=== PATIENT | female | born 1995 | race Two or more races ===

== ENCOUNTER → 2019-04-16 | Outpatient (REF) | payer OTHER, MEDICAID ==
[2019-04-16 21:44] LABS: HEMOGLOBIN A1c 5.4 %
== END ==
LOC: EDSEX → M LAB REF 19:05 → EDSEX 19:05
PROVIDERS: ATTEND Nurse Practitioner Adult Health
DX: R73.03 Prediabetes (principal); Z79.890 Hormone replacement therapy

== ENCOUNTER → 2019-04-21 | Outpatient (REF) | payer OTHER, MEDICAID | LOC: EDSEX → M LAB REF 08:26 | PROVIDERS: ATTEND Physician Assistant | DX: J02.9 Acute pharyngitis, unspecified (principal) ==

== ENCOUNTER → 2019-05-30 | Outpatient (REF) | payer OTHER, MEDICAID | LOC: M LAB REF 16:31 → EDSEX 16:31 | PROVIDERS: ATTEND Physician Assistant | DX: R30.0 Dysuria (principal) ==

== ENCOUNTER → 2019-08-06 | Outpatient (REF) | payer OTHER, MEDICAID ==
[2019-08-06 18:18] LABS: BASO % 0.3 % (0.0-1.0); EOS # 0.2 10^3/uL (0.0-0.5); EOS % 1.7 % (0.0-3.0); HEMATOCRIT 49.5 % (42.0-52.0); HEMOGLOBIN 16.3 g/dl (13.5-17.5); LYMPH # 2.8 10^3/uL (1.5-5.0); LYMPH % 30.6 % (24.0-44.0); MEAN CORPUSCULAR HEMOGLOBIN 29.2 pg (27.0-33.0); MEAN CORPUSCULAR HGB CONC 32.9 g/dl (32.0-36.5); MEAN CORPUSCULAR VOLUME 88.7 fl (80.0-96.0); MONO # 0.7 10^3/uL (0.0-0.8); MONO % 7.5 % (0.0-5.0); NEUTROPHILS # 5.4 10^3/uL (1.5-8.5); NEUTROPHILS % 59.7 % (36.0-66.0); PLATELET COUNT, AUTOMATED 291 10^3/uL (150-450); RED BLOOD COUNT 5.58 10^6/uL (4.30-6.10)
[2019-08-06 18:19] LABS: ALBUMIN 3.8 GM/DL (3.2-5.2); ALT/SGPT 19 U/L (12-78); BILIRUBIN,TOTAL 0.4 MG/DL (0.2-1.0); BLOOD UREA NITROGEN 16 MG/DL (7-18); CALCIUM LEVEL 9.3 MG/DL (8.5-10.1); CARBON DIOXIDE LEVEL 27 MEQ/L (21-32); CHLORIDE LEVEL 104 MEQ/L (98-107); CHOLESTEROL LEVEL 164 MG/DL (<200); CHOLESTEROL RISK RATIO 4.685 (<5); CREATININE FOR GFR 0.87 MG/DL (0.70-1.30); GLOMERULAR FILTRATION RATE > 60.0 (>60); GLUCOSE, FASTING 89 MG/DL (70-100); HDL CHOLESTEROL 35 MG/DL (>40); LDL CHOLESTEROL 98 MG/DL (<100); NON-HDL-C 129 MG/DL; POTASSIUM SERUM 4.3 MEQ/L (3.5-5.1); SODIUM LEVEL 139 MEQ/L (136-145); TOTAL PROTEIN 7.8 GM/DL (6.4-8.2); TRIGLYCERIDES LEVEL 156 MG/DL (<150)
[2019-08-06 18:27] LABS: TESTOSTERONE 728 NG/DL (241-827)
[2019-08-06 18:36] LABS: HEMOGLOBIN A1c 5.4 %
== END ==
LOC: M LAB REF 17:07
PROVIDERS: ATTEND Nurse Practitioner Adult Health
DX: Z79.890 Hormone replacement therapy (principal)

== ENCOUNTER → 2019-10-20 | Outpatient (REF) | payer OTHER ==
[2019-10-20 17:57] LABS: APPEARANCE, URINE HAZY (CLEAR); BACTERIA, URINE AUTO 1+ (NEGATIVE); BILIRUBIN, URINE AUTO NEGATIVE (NEGATIVE); BLOOD, URINE BLOOD 2+ (NEGATIVE); COLOR, URINE YELLOW (YELLOW); GLUCOSE, URINE (UA) AUTO NEGATIVE (NEGATIVE); KETONE, URINE AUTO TRACE mg/dL (NEGATIVE); LEUKOCYTE ESTERASE, URINE AUTO 1+ (NEGATIVE); MUCUS, URINE SMALL (NEGATIVE); NITRITE, URINE AUTO NEGATIVE (NEGATIVE); PROTEIN, URINE AUTO 1+ mg/dL (NEGATIVE); RBC, URINE AUTO 17 /HPF (0-3); SPECIFIC GRAVITY URINE AUTO 1.034 (1.002-1.035); SQUAMOUS EPITHELIAL CELL UR AU 0 /HPF (0-6); WBC, URINE AUTO 7 /HPF (0-3)
== END ==
LOC: M LAB REF 17:07
PROVIDERS: ATTEND Physician Assistant Medical
DX: R30.0 Dysuria (principal)

== ENCOUNTER → 2019-11-29 | Outpatient (REF) | payer OTHER, MEDICAID ==
[2019-11-29 19:24] LABS: BASO % 0.3 % (0.0-1.0); EOS # 0.1 10^3/uL (0.0-0.5); EOS % 1.9 % (0.0-3.0); HEMATOCRIT 49.5 % (42.0-52.0); HEMOGLOBIN 16.4 g/dl (13.5-17.5); LYMPH # 2.6 10^3/uL (1.5-5.0); LYMPH % 37.2 % (24.0-44.0); MEAN CORPUSCULAR HEMOGLOBIN 29.7 pg (27.0-33.0); MEAN CORPUSCULAR HGB CONC 33.1 g/dl (32.0-36.5); MEAN CORPUSCULAR VOLUME 89.5 fl (80.0-96.0); MONO # 0.6 10^3/uL (0.0-0.8); NEUTROPHILS # 3.6 10^3/uL (1.5-8.5); NEUTROPHILS % 52.3 % (36.0-66.0); PLATELET COUNT, AUTOMATED 281 10^3/uL (150-450); RED BLOOD COUNT 5.53 10^6/uL (4.30-6.10); WHITE BLOOD COUNT 6.9 10^3/uL (4.0-10.0)
[2019-11-29 19:32] LABS: ALBUMIN 3.9 GM/DL (3.2-5.2); ALT/SGPT 29 U/L (12-78); BILIRUBIN,TOTAL 0.4 MG/DL (0.2-1.0); BLOOD UREA NITROGEN 15 MG/DL (7-18); CALCIUM LEVEL 9.2 MG/DL (8.5-10.1); CARBON DIOXIDE LEVEL 26 MEQ/L (21-32); CHLORIDE LEVEL 105 MEQ/L (98-107); CHOLESTEROL LEVEL 178 MG/DL (<200); CHOLESTEROL RISK RATIO 4.684 (<5); CREATININE FOR GFR 0.98 MG/DL (0.70-1.30); GLOMERULAR FILTRATION RATE > 60.0 (>60); GLUCOSE, FASTING 94 MG/DL (70-100); HDL CHOLESTEROL 38 MG/DL (>40); LDL CHOLESTEROL 109 MG/DL (<100); NON-HDL-C 140 MG/DL; POTASSIUM SERUM 4.4 MEQ/L (3.5-5.1); SODIUM LEVEL 137 MEQ/L (136-145); TOTAL PROTEIN 7.8 GM/DL (6.4-8.2); TRIGLYCERIDES LEVEL 157 MG/DL (<150)
[2019-11-29 19:39] LABS: ESTRADIOL 40.8 PG/ML (<39.8); TESTOSTERONE 733 NG/DL (241-827)
[2019-11-29 19:40] LABS: HEMOGLOBIN A1c 5.9 %
== END ==
LOC: M LAB REF 17:24
PROVIDERS: ATTEND Nurse Practitioner Adult Health
DX: Z79.890 Hormone replacement therapy (principal)

== ENCOUNTER → 2020-01-30 | Outpatient (REF) | payer OTHER, MEDICAID | LOC: M LAB REF 17:44 | PROVIDERS: ATTEND Physician Assistant | DX: N39.0 Urinary tract infection, site not specified (principal) ==

== ENCOUNTER → 2020-03-23 | Outpatient (REF) | payer OTHER, MEDICAID ==
[2020-03-23 18:19] LABS: APPEARANCE, URINE CLEAR (CLEAR); BACTERIA, URINE AUTO NEGATIVE (NEGATIVE); BILIRUBIN, URINE AUTO NEGATIVE (NEGATIVE); BLOOD, URINE BLOOD 1+ (NEGATIVE); COLOR, URINE YELLOW (YELLOW); GLUCOSE, URINE (UA) AUTO NEGATIVE (NEGATIVE); KETONE, URINE AUTO NEGATIVE (NEGATIVE); LEUKOCYTE ESTERASE, URINE AUTO 2+ (NEGATIVE); MUCUS, URINE SMALL (NEGATIVE); NITRITE, URINE AUTO NEGATIVE (NEGATIVE); PROTEIN, URINE AUTO NEGATIVE (NEGATIVE); RBC, URINE AUTO 2 /HPF (0-3); SPECIFIC GRAVITY URINE AUTO 1.015 (1.002-1.035); SQUAMOUS EPITHELIAL CELL UR AU 0 /HPF (0-6); UROBILINOGEN, URINE AUTO 0.2 mg/dL (0.0-2.0); WBC, URINE AUTO 7 /HPF (0-3)
== END ==
LOC: EDSEX → M LAB REF 10:58
PROVIDERS: ATTEND Physician Assistant Medical
DX: N39.0 Urinary tract infection, site not specified (principal)

== ENCOUNTER → 2020-04-07 | Outpatient (REF) | payer OTHER ==
[2020-04-07 21:53] LABS: APPEARANCE, URINE CLEAR (CLEAR); BACTERIA, URINE AUTO NEGATIVE (NEGATIVE); BILIRUBIN, URINE AUTO NEGATIVE (NEGATIVE); BLOOD, URINE BLOOD 1+ (NEGATIVE); COLOR, URINE STRAW (YELLOW); GLUCOSE, URINE (UA) AUTO NEGATIVE (NEGATIVE); KETONE, URINE AUTO NEGATIVE (NEGATIVE); LEUKOCYTE ESTERASE, URINE AUTO 1+ (NEGATIVE); NITRITE, URINE AUTO NEGATIVE (NEGATIVE); PROTEIN, URINE AUTO NEGATIVE (NEGATIVE); RBC, URINE AUTO 2 /HPF (0-3); SPECIFIC GRAVITY URINE AUTO 1.008 (1.002-1.035); SQUAMOUS EPITHELIAL CELL UR AU 0 /HPF (0-6); UROBILINOGEN, URINE AUTO 0.2 mg/dL (0.0-2.0); WBC, URINE AUTO 6 /HPF (0-3)
== END ==
LOC: EDSEX → M LAB REF 21:22
PROVIDERS: ATTEND Physician Assistant Medical
DX: N39.0 Urinary tract infection, site not specified (principal)

== ENCOUNTER → 2020-04-21 | Outpatient (CLI) | payer OTHER ==
--- NOTE | 2020-05-01 10:25 | REP ---
PELVIC ULTRASOUND: TECHNIQUE: Transabdominal pelvic ultrasound with color Doppler evaluation. FINDINGS: Bladder is normal and measures 8.9 x 7.1 x 6.3 cm. Anteverted uterus measures 5.9 x 2.6 x 4.2 cm. Endometrial complex measures 6 mm thickness. No discrete uterine or endometrial abnormality identified. Bilateral ovaries area relatively normal in appearance and vascularity without torsion. Right ovary measures 2.8 x 2.0 x 1.9 cm (RI 0.71). Left ovary measures 2.8 x 2.2 x 2.4 cm (RI 0.48) and includes a 1.4 x 1.1 x 1.2 cm presumed physiologic cyst. No pelvic fluid or adnexal mass lesion. IMPRESSION: Normal pelvic ultrasound. MTDD
== END ==
LOC: M RAD 12:51 → EDSEX 13:30
PROVIDERS: ATTEND Nurse Practitioner Adult Health
DX: R10.2 Pelvic and perineal pain (principal)

== ENCOUNTER → 2020-05-27 | Outpatient (REF) | payer OTHER ==
[2020-05-27 19:38] LABS: BASO % 0.3 % (0.0-1.0); EOS # 0.1 10^3/uL (0.0-0.5); EOS % 1.8 % (0.0-3.0); HEMATOCRIT 48.6 % (42.0-52.0); HEMOGLOBIN 15.8 g/dl (13.5-17.5); LYMPH # 3.1 10^3/uL (1.5-5.0); LYMPH % 38.5 % (24.0-44.0); MEAN CORPUSCULAR HEMOGLOBIN 29.3 pg (27.0-33.0); MEAN CORPUSCULAR HGB CONC 32.5 g/dl (32.0-36.5); MEAN CORPUSCULAR VOLUME 90.2 fl (80.0-96.0); MONO # 0.8 10^3/uL (0.0-0.8); MONO % 9.6 % (0.0-5.0); NEUTROPHILS % 49.4 % (36.0-66.0); PLATELET COUNT, AUTOMATED 298 10^3/uL (150-450); RED BLOOD COUNT 5.39 10^6/uL (4.30-6.10)
[2020-05-27 19:51] LABS: ALBUMIN 4.1 GM/DL (3.2-5.2); ALT/SGPT 25 U/L (12-78); BILIRUBIN,TOTAL 0.4 MG/DL (0.2-1.0); BLOOD UREA NITROGEN 16 MG/DL (7-18); CALCIUM LEVEL 9.1 MG/DL (8.5-10.1); CARBON DIOXIDE LEVEL 28 MEQ/L (21-32); CHLORIDE LEVEL 102 MEQ/L (98-107); CHOLESTEROL LEVEL 173 MG/DL (<200); CREATININE FOR GFR 0.96 MG/DL (0.70-1.30); GLOMERULAR FILTRATION RATE > 60.0 (>60); GLUCOSE, FASTING 65 MG/DL (70-100); HDL CHOLESTEROL 31 MG/DL (>40); LDL CHOLESTEROL 93 MG/DL (<100); NON-HDL-C 142 MG/DL; POTASSIUM SERUM 4.3 MEQ/L (3.5-5.1); SODIUM LEVEL 136 MEQ/L (136-145); TOTAL PROTEIN 7.6 GM/DL (6.4-8.2); TRIGLYCERIDES LEVEL 245 MG/DL (<150)
[2020-05-27 19:52] LABS: HEMOGLOBIN A1c 5.3 %
[2020-05-27 19:59] LABS: ESTRADIOL 58.6 PG/ML (<39.8)
[2020-05-29 11:10] LABS: TESTOSTERONE FREE (DIRECT) 27.7 pg/mL (9.3-26.5)
== END ==
LOC: M LAB REF 17:35
PROVIDERS: ATTEND Nurse Practitioner Adult Health
DX: Z79.890 Hormone replacement therapy (principal)

== ENCOUNTER → 2020-05-30 | Outpatient (REF) | payer OTHER ==
[2020-05-30 19:05] LABS: APPEARANCE, URINE CLEAR (CLEAR); BACTERIA, URINE AUTO NEGATIVE (NEGATIVE); BILIRUBIN, URINE AUTO NEGATIVE (NEGATIVE); BLOOD, URINE BLOOD 1+ (NEGATIVE); COLOR, URINE YELLOW (YELLOW); GLUCOSE, URINE (UA) AUTO NEGATIVE (NEGATIVE); KETONE, URINE AUTO NEGATIVE (NEGATIVE); LEUKOCYTE ESTERASE, URINE AUTO NEGATIVE (NEGATIVE); MUCUS, URINE SMALL (NEGATIVE); NITRITE, URINE AUTO NEGATIVE (NEGATIVE); PROTEIN, URINE AUTO NEGATIVE (NEGATIVE); RBC, URINE AUTO 12 /HPF (0-3); SQUAMOUS EPITHELIAL CELL UR AU 0 /HPF (0-6); UROBILINOGEN, URINE AUTO 0.2 mg/dL (0.0-2.0); WBC, URINE AUTO 1 /HPF (0-3)
== END ==
LOC: M LAB REF 18:45
PROVIDERS: ATTEND Physician Assistant Medical
DX: N39.0 Urinary tract infection, site not specified (principal)

== ENCOUNTER → 2020-08-19 | Outpatient (REF) | payer OTHER ==
[~2020-08-19] MED LIST: AMIT10TA PO; REGL5TAB2 PO
[2020-08-21 12:10] LABS: TESTOSTERONE FREE (DIRECT) 21.4 pg/mL (9.3-26.5)
== END ==
LOC: M LAB REF 11:43
PROVIDERS: ATTEND Nurse Practitioner Adult Health
DX: Z79.890 Hormone replacement therapy (principal)

== ENCOUNTER 2020-08-24 14:37 | Emergency (ER) | payer OTHER ==
[~2020-08-24] VITALS: Ht 167.6 cm; Wt 106.5 kg
[2020-08-24] MEDS ORDERED: KETOROLAC 30 MG/ML 1ML VIAL IV ONE (15:45)
[2020-08-24] MEDS ORDERED: METOCLOPRAMIDE INJ 10MG/2ML VIAL (J2765 PER 1) IV ONE (15:45)
[2020-08-24] MEDS ORDERED: ACETAMINOPHEN 500 MG TAB PO ONE (15:45)
--- NOTE | 2020-08-24 16:05 | REP ---
INDICATION: headahce x 1.5 mo. COMPARISON: None. TECHNIQUE: Helical scanning is acquired. 5 mm axial images were reformatted. Coronal MPR images were generated. FINDINGS: Bone window settings demonstrate an intact bony calvarium. There is no evidence of skull fracture or incidental bony calvarial lesion. The visualized paranasal sinuses appear clear. No intraorbital abnormality is seen. On soft tissue window setting images; the lateral, third, and fourth ventricles are normal in size and position. There is a persistent cavum septum lucent M which is normal variant. Escobedo-white differentiation pattern is normal above and below the tentorium. There are is no evidence of intracranial hemorrhage. No mass, edema, infarction, or midline shift is seen. No extra-axial fluid collection is appreciated. IMPRESSION: Negative noncontrast head CT. <Electronically signed by Michael Tovar > 08/24/20 [id number]
[2020-08-24] MEDS ORDERED: AMIT10TA PO (17:34)
[2020-08-24] MEDS ORDERED: REGL5TAB2 PO (17:35)
[2020-08-24 17:49] VITALS: BP 137/69
== END 2020-08-24 17:51 | disposition home or self-care (01) ==
LOC: M ED 14:37
DX: R51.9 Headache, unspecified (principal); Z79.899 Other long term (current) drug therapy; F12.20 Cannabis dependence, uncomplicated
CPT/HCPCS: 70450; 96374; 96375; 99283; J1885; J2765

== ENCOUNTER 2020-11-14 13:39 | Emergency (ER) | payer OTHER ==
[~2020-11-14] VITALS: Ht 170.2 cm; Wt 100.5 kg
[~2020-11-14 13:39] MED LIST changes: -AMIT10TA PO; +AMIT10TA7 PO
[2020-11-14] MEDS ORDERED: TEST50GE2 (13:46)
[2020-11-14] MEDS ORDERED: FAMO1TAB11 (13:46)
[2020-11-14] MEDS ORDERED: BUSP15TA47 PO (13:46)
--- NOTE | 2020-11-14 15:13 | REP ---
INDICATION: swelling/hormone use. COMPARISON: None. TECHNIQUE: Bilateral upper extremity duplex venous sonography. FINDINGS: The internal jugular, axillary, brachial, basilic, and cephalic veins are anechoic and compressible in the left and right upper extremity. Color flow imaging is homogeneous. Spectral Doppler interrogation is unremarkable. There is no evidence of left or right upper extremity venous thrombosis. IMPRESSION: Negative bilateral upper extremity duplex venous ultrasound. No evidence of venous thrombosis. <Electronically signed by Michael Tovar > 11/14/20 [id number]
[2020-11-14 16:09] LABS: BASO % 0.3 % (0.0-1.0); EOS # 0.1 10^3/uL (0.0-0.5); EOS % 1.9 % (0.0-3.0); HEMATOCRIT 49.5 % (42.0-52.0); HEMOGLOBIN 16.5 g/dl (13.5-17.5); LYMPH # 2.3 10^3/uL (1.5-5.0); LYMPH % 33.2 % (24.0-44.0); MEAN CORPUSCULAR HEMOGLOBIN 30.1 pg (27.0-33.0); MEAN CORPUSCULAR HGB CONC 33.3 g/dl (32.0-36.5); MEAN CORPUSCULAR VOLUME 90.3 fl (80.0-96.0); MONO # 0.6 10^3/uL (0.0-0.8); MONO % 8.3 % (2.0-8.0); NEUTROPHILS # 3.9 10^3/uL (1.5-8.5); NEUTROPHILS % 56.2 % (36.0-66.0); PLATELET COUNT, AUTOMATED 250 10^3/uL (150-450); RED BLOOD COUNT 5.48 10^6/uL (4.30-6.10); WHITE BLOOD COUNT 6.9 10^3/uL (4.0-10.0)
[2020-11-14 16:22] LABS: INR 0.97; PROTHROMBIN TIME 13.1 SECONDS (12.5-14.3)
[2020-11-14 16:23] LABS: PARTIAL THROMBOPLASTIN TIME 33.1 SECONDS (24.2-38.5)
[2020-11-14] MEDS ORDERED: IBUP-1114 PO (16:32)
[2020-11-14 16:48] VITALS: BP 135/77
== END 2020-11-14 17:01 | disposition home or self-care (01) ==
LOC: M ED 13:39
DX: S40.021A Contusion of right upper arm, initial encounter (principal); S40.022A Contusion of left upper arm, initial encounter; X58.XXXA Exposure to other specified factors, initial encounter; Y92.89 Other specified places as the place of occurrence of the external cause; Z79.899 Other long term (current) drug therapy; F15.20 Other stimulant dependence, uncomplicated

== ENCOUNTER → 2021-03-06 | Outpatient (CLI) | payer OTHER ==
[~2021-03-06] MED LIST changes: +BUSP15TA47 PO; +FAMO1TAB11; +FAMO20TA PO; +IBUP-1114 PO; +TEST50GE2; +TEST5GEL PO
== END ==
LOC: M LABSMTC 09:56
PROVIDERS: ATTEND Anesthesiology
DX: Z01.818 Encounter for other preprocedural examination (principal)

== ENCOUNTER 2021-03-11 09:30 | Observation (INO) | payer OTHER ==
[~2021-03-11] VITALS: Ht 170.2 cm; Wt 102.1 kg
[~2021-03-11 09:30] MED LIST changes: +HEPARIN SOD (PORCINE) 5000UNITS/ML 1ML VIAL/SYRINGE SQ ONE; +LIDOCAINE 2% 100MG/5ML SDV (FOR ANES.) As Ordered ONE; +LR 1,000 ML IV ONE; +MIDAZOLAM INJ 2MG/2ML VIAL (J2250 PER 1MG) As Ordered ONE; +ONDANSETRON 4MG/2ML VIAL As Ordered ONE; +ROCURONIUM BROMIDE 50 MG/5 ML VIAL As Ordered ONE; +ceFAZolin SOD 1 GM in D5W MINI-BAG PLUS 50 ML IV ONE; +dexameTHASONE 4 MG/ML 1ML VIAL (J1100 PER 1MG) As Ordered ONE; +fentaNYL 250 MCG/5 ML INJECTION (J3010) As Ordered ONE; +propofoL 200 MG/20 ML VIAL As Ordered ONE
[2021-03-11] MEDS ORDERED: GENTAMICIN SULF 80MG/2ML VIAL As Ordered ONE (11:20)
[2021-03-11] MEDS ORDERED: EPINEPHrine INJ 1 MG/ML 1ML AMP As Ordered ONE (11:21)
[2021-03-11] MEDS ORDERED: LIDOCAINE 1% MDV 20ML VIAL As Ordered ONE (11:21)
[2021-03-11] MEDS ORDERED: LACRILUBE (AKWA TEARS) OPHTH OINT 3.5 GM As Ordered ONE (11:53)
[2021-03-11] MEDS ORDERED: ROCURONIUM BROMIDE 50 MG/5 ML VIAL As Ordered ONE ×2 (12:31→13:50)
[2021-03-11] MEDS ORDERED: ACETAMINOPHEN 1000MG 100ML IV BTL (OFIRMEV) (J0131 PER 10MG) As Ordered ONE (12:32)
[2021-03-11] MEDS ORDERED: SUGAMMADEX SODIUM 500 MG/5 ML VIAL (BRIDION) As Ordered ONE (12:32)
[2021-03-11] MEDS ORDERED: HYDROmorphone HCL 2 MG/ML 1ML VIAL (J1170) As Ordered ONE (12:36)
[2021-03-11] MEDS ORDERED: PHENYLephrine 500MCG 5ML (100MCG/ML) SYRINGE As Ordered ONE (12:53)
[2021-03-11] MEDS: BUPIVACAINE LIPOSOME/PF 1.3% 20ML VIAL (13.3MG/ML)(EXPAREL)(C9290 PER1MG) As Ordered ONE ×2 (13:33→14:54)
[2021-03-11] MEDS ORDERED: ESMOLOL INJ 100MG/10ML VIAL As Ordered ONE (15:45)
--- NOTE | 2021-03-11 16:04 | ROOPDOC ---
[facility] Report Of Operation Report of Operation DATE OF PROCEDURE: 03/11/21 PREOPERATIVE DIAGNOSIS: Gender dysphoria, bilateral breast hypertrophy POSTOPERATIVE DIAGNOSIS: same PROCEDURE: Chest masculinization procedure with subcutaneous mastectomies, contouring liposuction and free nipples graft. SURGEON: Dr Corral [employer] DIRECTOR: none ANESTHESIA: general ESTIMATED BLOOD LOSS: 100 cc FINDINGS: female chest distribution SPECIMENS: Right breast 1236 gm, Left breast 1229 gm COMPLICATIONS: none REPLACED: none DRAINS: 10 mm JOEY x 2 POSTOPERATIVE CONDITION: stable DESCRIPTION OF PROCEDURE: DESCRIPTION OF PROCEDURE: This is a 25-year-old transgender male who would like to have chest masculinization procedure. Patient fits the criteria for the procedure. He has stopped testosterone 3 weeks ago. Risks, benefits, and alternatives were discussed with the patient in detail, and he is ready to proceed. The day of surgery, he was marked in the upright position and informed consent w as obtained. He measured 35 cm from sternal notch to nipple on both sides, IMF at 22 cm bilaterally. Patient was marked according to double incision subcutaneous mastectomy. He was brought into the operating room and placed in the supine position. Preoperative antibiotics and 5000 units heparin subcutaneous were given. Sequential pneumatic stocking were placed on the lower calves. General anesthesia was induced. He was prepped and draped in the usual sterile fashion. We started our procedure on the right side. Nipple areolar complex was outlined 20 mm in diameter. Superior incision carried out followed by the inframammary incision. Dissection continued by undermining the flap with thick edges from the superior incision toward the midportion of the pectoralis major, then the breast was removed along the pectoralis fascia. Inframammary groove was obliterated, to smooth out the chest appearance. Total weight on the right side is 1236 grams. Hemostasis was obtained using electrocautery. We used Exparel 5 cc for local anesthesia to infiltrate in the Pectoralis muscle. Started closing the flap with interrupted 0 Vicryl sutures. 10 mm Hernan-Subramanian drain was placed through the lateral part of the horizontal scar. 100 mL of tumescent solution was infiltrated on the lateral chest and medial part of the incision. VASER liposuction carried out on both areas followed by suction-assisted lipectomy to smooth out the contour of the lateral chest and medial breast. Total 110 milliliters of liposuction fluid was evacuated from the lateral chest. Then we turn our attention to the left side. Nipple areolar complex was outlined 20 mm in diameter. Superior incision carried out followed by the inframammary incision. Dissection continued by undermining the flap with thick edges from the superior incision toward the midportion of the pectoralis major, then the breast was removed along the pectoralis fascia. Inframammary groove was obliterated, to smooth out the chest appearance. Total weight on the right side is 1229 grams. Hemostasis was obtained using electrocautery. We used Exparel 5 cc for local anesthesia to infiltrate in the Pectoralis muscle. Started closing the flap with interrupted 0 Vicryl sutures. 10 mm Hernan-Subramanian drain was placed through the lateral part of the horizontal scar. 100 mL of tumescent solution was infiltrated on the lateral chest and medial part of the incision. VASER lip osuction carried out on both areas followed by suction-assisted lipectomy to smooth out the contour of the lateral chest and medial breast. Total 110 milliliters of liposuction fluid was evacuated from the lateral chest. Breast tissue removed was stored on the sterile table. At this point we harvested the nipple areolar complex from each breast. Tissue was defatted and transferred to a chest as a free graft. Location of the nipple is 2 cm from inframammary line. Skin opening was made 1.5 x 2.4 cm in oblong overall shape. Nipple areolar complex graft was secured in place with interrupted 4-0 and 5-0 chromic sutures. Bolster dressing was applied and secured in place with 4-0 nylon sutures. Remaining Exparel injected in the horizontal incision. Total Exparel use 10 cc. Resected tissue sent to pathology in two specimens right and left breast tissue. Dressings were applied to vertical and horizontal incision: Prineo, bulky dressing and binder. Patient was extubated in the operating room without difficulty and was transferred to the recovery room in stable condition. SEB CORRAL DO Mar 11, 2021 16:04
--- NOTE | 2021-03-11 16:04 | POST-OPPD ---
Postoperative Procedure Note Date Of Procedure: Mar 11, 2021 PREOPERATIVE DIAGNOSIS: Gender dysphoria, bilateral breast hypertrophy POSTOPERATIVE DIAGNOSIS: same PROCEDURE: Chest masculinization procedure with subcutaneous mastectomies, contouring liposuction and free nipples graft. SURGEON: Dr Corral HYDROSTATIC TUBING TESTER: none ANESTHESIA: general ESTIMATED BLOOD LOSS: 100 cc FINDINGS: female chest distribution SPECIMENS: Right breast 1236 gm, Left breast 1229 gm COMPLICATIONS: none REPLACED: none DRAINS: 10 mm JOEY x 2 POSTOPERATIVE CONDITION: stable SEB CORRAL DO Mar 11, 2021 16:04
[2021-03-11] MEDS ORDERED: KETOROLAC TROMETHAMINE 10 MG TAB PO PRN (16:05)
[2021-03-11] MEDS ORDERED: PERCOCET 5MG/325MG TAB PO PRN (16:05)
[2021-03-11] MEDS ORDERED: ONDANSETRON 4MG/2ML VIAL IV PRN ×2 (16:05→16:10)
[2021-03-11] MEDS ORDERED: oxyCODONE 5MG TAB PO PRN (16:10)
[2021-03-11] MEDS ORDERED: fentaNYL 100 MCG/2 ML INJECTION (J3010) IV PRN (16:10)
[2021-03-11] MEDS ORDERED: LR 1,000 ML IV SCH (16:10)
[2021-03-11 17:30] VITALS: BP 151/90
[2021-03-11] MEDS: LR 1,000 ML IV SCH ×2 (17:52→23:59)
[2021-03-11 18:00] VITALS: BP 148/90
[2021-03-11 19:00] VITALS: BP 144/89
[2021-03-11 20:00] VITALS: BP 140/89
[2021-03-11] MEDS: ceFAZolin SOD 1 GM in D5W MINI-BAG PLUS 50 ML IV SCH (20:20)
[2021-03-11] MEDS: ACETAMINOPHEN TAB 650MG DOSE (2X325MG) PO PRN (20:25)
[2021-03-11 21:00] VITALS: BP 141/88
[2021-03-11 22:00] VITALS: BP 143/90
[2021-03-12 02:00] VITALS: BP 125/79
[2021-03-12 05:37] VITALS: BP 126/77
[2021-03-12] MEDS: ceFAZolin SOD 1 GM in D5W MINI-BAG PLUS 50 ML IV SCH (05:38)
[2021-03-12] MEDS: ACETAMINOPHEN TAB 650MG DOSE (2X325MG) PO PRN (05:38)
--- NOTE | 2021-03-12 09:22 | IPNPDOC ---
Subjective General Date Seen: Mar 12, 2021 Subject Chief Complaint/History The patient is a 25-year-old male admitted with a reason for visit of Gender Dysphoria, Bilateral Breast Hypertrophy. Patient status post bilateral subcutaneous mastectomies with lateral chest liposculpture and free nipple graft. Postop day 1. Patient is doing well, pain controlled. No shortness of breath, chest pain, abdominal pain. Tolerating regular diet, ambulating and urinating well. Current Medications Current Medications Current Medications Medications (Trade) Dose Ordered Sig/Kaden Route PRN Reason Start Time Stop Time Status Last Admin Dose Admin Acetaminophen (Tylenol Tab) 650 mg Q6H PRN PO MILD PAIN (PS 1-4) 03/11/21 16:05 03/12/21 05:38 Cefazolin Sodium 1 gm/Dextrose 50 ml @ 100 mls/hr Q8H IV 03/11/21 21:00 03/12/21 05:38 Fentanyl Citrate (Sublimaze) 25 mcg Q5MP PRN IV PAIN LEVEL 8-10 03/11/21 16:10 03/11/21 18:10 DC Ketorolac Tromethamine (ToRADol) 10 mg Q6HP PRN PO MODERATE PAIN (PS 5-7) 03/11/21 16:05 03/16/21 16:04 03/12/21 08:24 Lactated Ringer's 1,000 ml @ 75 mls/hr [id number] IV 03/11/21 16:05 03/11/21 23:59 Lactated Ringer's 1,000 ml @ 80 mls/hr [id number] IV 03/11/21 16:10 03/11/21 18:10 DC Ondansetron HCl (ZOFRAN INJection) 4 mg Q4H PRN IV NAUSEA OR VOMITING 03/11/21 16:05 03/11/21 20:20 Ondansetron HCl (ZOFRAN INJection) 4 mg Q4HP PRN IV NAUSEA OR VOMITING 03/11/21 16:10 03/11/21 18:10 DC 03/11/21 16:25 Oxycodone HCl (Roxicodone, Oxyir) 5 mg ASDIRECTED PRN PO PAIN LEVEL 1-4 03/11/21 16:10 03/11/21 18:10 DC Oxycodone/ Acetaminophen (Percocet 5mg/ 325mg Tablet) 2 tab Q4HP PRN PO PAIN LEVEL 8-10 03/11/21 16:05 Allergies Coded Allergies: No Known Allergies (Unverified , 08/24/20) Objective Physical Examination Examination GENERAL APPEARANCE:Patient seen, laying in bed, awake, alert, and oriented. Comfortable, in no acute distress. SKIN: Warm and moist. BREAST: Right and left soft, non-tender incisions intact. JOEY drains: L15, R30 cc/24 hr. NAC: with bolster dressings in place. LUNGS: Clear to auscultation bilaterally. No wheezing appreciated. HEART: No chest wall abnormalities. Regular rate and rhythm with no murmurs appreciated. ABDOMEN: Abdomen is soft, non-tender, non-distended. EXTREMITIES: No edema identified. No calf tenderness. Vital Signs Vital Signs Date Time Temp Pulse Resp B/P (MAP) Pulse Ox O2 Delivery O2 Flow Rate FiO2 03/12/21 05:37 97.8 100 17 126/77 (93) 95 Room Air 03/11/21 18:09 2.0 I&Os I&O- Last 24 Hours up to 6 AM 03/12/21 06:00 Intake Total 1860 ml Output Total 645 ml Balance 1215 ml Impression Gender dysphoria and breast hypertrophy. Status post bilateral subcutaneous mastectomies for chest masculinization proced ure. Stable for discharge. Dressings changed today, keep bolster dressings in place for 7 days. No heavy lifting. Instructions given to the patient, monitor JOEY drains output. Follow-up with plastic surgery in 7 days. Plan / VTE VTE Prophylaxis Ordered?: Yes SEB CORRAL DO Mar 12, 2021 09:21
[2021-03-12] MEDS ORDERED: PERCOCET PO (09:26)
== END 2021-03-12 13:25 | disposition home or self-care (01) ==
LOC: M SDC 09:30 → M ED INP 09:31 → M MS5PR 17:25
PROVIDERS: ADMIT Plastic Surgery Surgery of the Hand; ATTEND Plastic Surgery Surgery of the Hand
DX: F64.9 Gender identity disorder, unspecified (principal); N62 Hypertrophy of breast; I51.9 Heart disease, unspecified; K21.9 Gastro-esophageal reflux disease without esophagitis; F41.9 Anxiety disorder, unspecified; F32.9 Major depressive disorder, single episode, unspecified; J45.909 Unspecified asthma, uncomplicated; R51.9 Headache, unspecified; Z79.899 Other long term (current) drug therapy; Z79.890 Hormone replacement therapy
CPT/HCPCS: 19303; 19350; 88300; 88305; 96365; 96376; C9290; J0131; J0171; J0690; J1100; J1170; J1580; J1644; J2250; J2370; J2405; J3010

== ENCOUNTER 2021-03-15 22:08 | Emergency (ER) | payer OTHER ==
[~2021-03-15] VITALS: Ht 170.2 cm; Wt 97.7 kg
[~2021-03-15 22:08] MED LIST changes: -HEPARIN SOD (PORCINE) 5000UNITS/ML 1ML VIAL/SYRINGE SQ ONE; -LIDOCAINE 2% 100MG/5ML SDV (FOR ANES.) As Ordered ONE; -LR 1,000 ML IV ONE; -MIDAZOLAM INJ 2MG/2ML VIAL (J2250 PER 1MG) As Ordered ONE; -ONDANSETRON 4MG/2ML VIAL As Ordered ONE; +PERCOCET PO; -ROCURONIUM BROMIDE 50 MG/5 ML VIAL As Ordered ONE; -ceFAZolin SOD 1 GM in D5W MINI-BAG PLUS 50 ML IV ONE; -dexameTHASONE 4 MG/ML 1ML VIAL (J1100 PER 1MG) As Ordered ONE; -fentaNYL 250 MCG/5 ML INJECTION (J3010) As Ordered ONE; -propofoL 200 MG/20 ML VIAL As Ordered ONE
[2021-03-15 22:10] VITALS: BP 139/85
[2021-03-15] MEDS ORDERED: TEST1GEL10 TOP (22:15)
[2021-03-16 00:20] LABS: BASO % 0.3 % (0.0-1.0); EOS # 0.2 10^3/uL (0.0-0.5); EOS % 2.5 % (0.0-3.0); HEMATOCRIT 47.4 % (42.0-52.0); LYMPH # 3.6 10^3/uL (1.5-5.0); LYMPH % 37.1 % (24.0-44.0); MEAN CORPUSCULAR HEMOGLOBIN 30.7 pg (27.0-33.0); MEAN CORPUSCULAR HGB CONC 33.8 g/dl (32.0-36.5); MONO # 0.7 10^3/uL (0.0-0.8); MONO % 7.4 % (2.0-8.0); NEUTROPHILS # 5.1 10^3/uL (1.5-8.5); NEUTROPHILS % 52.4 % (36.0-66.0); PLATELET COUNT, AUTOMATED 301 10^3/uL (150-450); RED BLOOD COUNT 5.21 10^6/uL (4.30-6.10); WHITE BLOOD COUNT 9.8 10^3/uL (4.0-10.0)
--- NOTE | 2021-03-16 00:31 | REPVR ---
PROCEDURE INFORMATION: Exam: XR Chest Exam date and time: 03/15/2021 11:32 PM Age: 25 years old Clinical indication: Post op complication TECHNIQUE: Imaging protocol: XR of the chest. Views: 1 view. COMPARISON: No relevant prior studies available. FINDINGS: Lungs: The lung volumes are low. There is bibasilar atelectasis. No lung consolidation or pulmonary edema is noted. Pleural spaces: Unremarkable. No pleural effusion. No pneumothorax. Heart/Mediastinum: Unremarkable. No cardiomegaly. Bones/joints: Unremarkable. IMPRESSION: Bibasilar atelectasis. Electronically signed by: El Britton On 03/16/2021 00:30:43 AM
[2021-03-16 00:39] LABS: ERYTHROCYTE SEDIMENTATION RATE 22 mm/hr (0-15)
[2021-03-16 00:57] LABS: ALBUMIN 4.1 GM/DL (3.2-5.2); ALT/SGPT 27 U/L (12-78); BILIRUBIN,TOTAL 0.3 MG/DL (0.2-1.0); BLOOD UREA NITROGEN 19 MG/DL (7-18); C REACTIVE PROTEIN QUANTITATIV 0.82 MG/DL (0.00-0.30); CALCIUM LEVEL 9.2 MG/DL (8.5-10.1); CARBON DIOXIDE LEVEL 30 MEQ/L (21-32); CHLORIDE LEVEL 104 MEQ/L (98-107); CREATININE FOR GFR 0.87 MG/DL (0.70-1.30); GLOMERULAR FILTRATION RATE > 60.0 (>60); GLUCOSE, FASTING 89 MG/DL (70-100); POTASSIUM SERUM 4.3 MEQ/L (3.5-5.1); SODIUM LEVEL 138 MEQ/L (136-145); TOTAL PROTEIN 8.1 GM/DL (6.4-8.2)
== END 2021-03-16 02:07 | disposition home or self-care (01) ==
LOC: M ED 22:08
DX: G89.18 Other acute postprocedural pain (principal); Z79.899 Other long term (current) drug therapy; Z79.890 Hormone replacement therapy

== ENCOUNTER → 2021-05-11 | Outpatient (REF) | payer OTHER ==
[~2021-05-11] MED LIST changes: +TEST1GEL10 TOP
[2021-05-11 16:54] LABS: APPEARANCE, URINE CLEAR (CLEAR); BACTERIA, URINE AUTO NEGATIVE (NEGATIVE); BILIRUBIN, URINE AUTO NEGATIVE (NEGATIVE); BLOOD, URINE BLOOD 1+ (NEGATIVE); COLOR, URINE STRAW (YELLOW); GLUCOSE, URINE (UA) AUTO NEGATIVE (NEGATIVE); KETONE, URINE AUTO NEGATIVE (NEGATIVE); LEUKOCYTE ESTERASE, URINE AUTO NEGATIVE (NEGATIVE); NITRITE, URINE AUTO NEGATIVE (NEGATIVE); PROTEIN, URINE AUTO NEGATIVE (NEGATIVE); RBC, URINE AUTO 0 /HPF (0-3); SQUAMOUS EPITHELIAL CELL UR AU 0 /HPF (0-6); UROBILINOGEN, URINE AUTO 0.2 mg/dL (0.0-2.0); WBC, URINE AUTO 0 /HPF (0-3)
== END ==
LOC: M LAB REF 16:31
PROVIDERS: ATTEND Physician Assistant Medical
DX: R30.0 Dysuria (principal)